=== PATIENT | male | born 1995 | race Hispanic/Latino ===

== ENCOUNTER 2016-09-12 21:06 | Emergency (ER) | payer BC ==
[2016-09-12 21:16] VITALS: BP 135/72; PULSE 74; RESP 18; TEMP 98.6; O2SAT 99
[2016-09-12] MEDS ORDERED: Fluorescein 1 mg Ophthalmic Strip ONE (21:37)
[2016-09-12] MEDS ORDERED: Ciprofloxacin 0.3% OPTH SOLN OD STA (21:52)
--- NOTE | 2016-09-12 21:52 | ED PDOC ---
HPI: Eye Injury/Pain Time Seen by Provider: 09/12/16 21:40 Chief Complaint (Nursing): Eye Problem Chief Complaint (Provider): Eye irritation History Per: Patient History/Exam Limitations: no limitations Onset/Duration Of Symptoms: Days (2) Current Symptoms Are (Timing): Still Present Injury To Eye?: No Wears Contact Lens?: No Associated Symptoms: Itching, Discharge From Eye Additional History Per: Patient Additional Complaint(s): The pt is a 21yo male, presents to the ED for evaluation of itching and discharge from his eyes; pt states symptoms were initially present in his right eye yesterday but today are present in both. Reports he used Visine with no relief. Denies any contact lens use or known sick contacts. Pt additionally states he fell about one week ago but denies any foreign body in his eyes. Of note, pt states he does have a sore throat. Offers no additional medical complaints. Past Medical History Reviewed: Historical Data, Nursing Documentation, Vital Signs Vital Signs: Last Vital Signs Temp 98.6 F 09/12/16 21:13 Pulse 74 09/12/16 21:13 Resp 18 09/12/16 21:13 BP 135/72 09/12/16 21:13 Pulse Ox 99 09/12/16 21:13 - Medical History PMH: No Chronic Diseases - Family History Family History: States: No Known Family Hx - Home Medications Home Medications: Ambulatory Orders Medication Instructions Recorded Ciprofloxacin 0.3% [Ciloxan 0.3% 1 drop BOTHEYES QID #1 bottle 09/12/16 Kimmie KING] - Allergies Allergies/Adverse Reactions: Allergies Allergy/AdvReac Type Severity Reaction Status Date / Time No Known Allergies Allergy Verified 09/12/16 21:15 Review of Systems ROS Statement: Except As Marked, All Systems Reviewed And Found Negative Eyes: Positive for: Other (itching, swelling and discharge from eyes b/l) ENT: Positive for: Throat Pain Physical Exam - Reviewed Nursing Documentation Reviewed: Yes Vital Signs Reviewed: Yes - Physical Exam Appears: Positive for: Well, Non-toxic, No Acute Distress Head Exam: Positive for: ATRAUMATIC, NORMAL INSPECTION, NORMOCEPHALIC Skin: Positive for: Normal Color, Warm, DRY Eye Exam: Positive for: EOMI, PERRL, Conjunctival injection (bilatera;), Other ( purulent discharge from bilateral eyes, more prominent in left eye. vision acuity: left eye 20/20, right eye 20/50 bilaterally 20/20. No fluorescein uptaik) ENT: Positive for: Pharyngeal Erythema. Negative for: Tonsillar Exudate Neck: Positive for: Normal Cardiovascular/Chest: Positive for: Regular Rate, Rhythm Respiratory: Positive for: Normal Breath Sounds. Negative for: Respiratory Distress Neurologic/Psych: Positive for: Alert, Oriented - ECG O2 Sat by Pulse Oximetry: 99 (RA) Pulse Ox Interpretation: Normal - Progress ED Course And Treament: strep neg Medical Decision Making Medical Decision Making: Time: 2149 Impression: B/l eye irritation with discharge Plan: -- Fluorescein exam -- Rapid strep Scribe Attestation: Documented by Catarina Alcaraz acting as a scribe for PATEL Garcia Provider Attestation: All medical record entries made by the Scribe were at my direction and personally dictated by me. I have reviewed the chart and agree that the record accurately reflects my personal performance of the history, physical exam, medical decision making, and the department course for this patient. I have also personally directed, reviewed, and agree with the discharge instructions and disposition. Disposition - Clinical Impression Clinical Impression: Conjunctivitis - Patient ED Disposition Is Patient to be Admitted: No - Disposition Referrals: Eric Toscano MD [Staff Provider] - Disposition: Routine/Home Disposition Time: 22:37 Condition: FAIR Prescriptions: Ciprofloxacin 0.3% [Ciloxan 0.3% Ophth SOLN] 1 drop BOTHEYES QID #1 bottle Instructions: Conjunctivitis (ED) Forms: [facility] ED School/Work Excuse
== END 2016-09-12 23:54 | disposition home or self-care (01) ==
LOC: H.ER 21:06
DX: H10.9 Unspecified conjunctivitis (principal)